=== PATIENT | female | born 1965 | race Caucasian/White ===

== ENCOUNTER 2018-05-01 21:10 | Emergency (ER) | payer OTHER ==
--- NOTE | 2018-05-01 22:19 | ERPHSYRPT ---
- History of Present Illness Time Seen by Provider: 05/01/18 22:12 Source: patient Exam Limitations: no limitations Patient Subjective Stated Complaint: pt states she has a headache that began at 1600 and has been getting worse. states it started as a sinus headache on the rt side of her head and is now on both sides, front and back and in neck. states she has headacehes like this occasionally Triage Nursing Assessment: pt alert and oriented, asnwers questions approp. pt ambulaotory with steady gait noted. respirations nonlabored with lungs cta. bilat upper and lower ext strength wnl and equal. pupils equal and reactive. Physician History: The patient is a 52-year-old female with her mother complaining of a headache since 4 PM today. Light bothers her, noise bothers her, and she is nauseated. She has headaches like this every so often. She denies numbness or tingling. She did see some visual spots earlier today. Her past medical history is significant for depression, asthma, and anxiety. Timing/Duration: today Quality: sharpness, throbbing Head Pain Location: frontal (right) Severity of Pain-Max: moderate Severity of Pain-Current: moderate Recent Head Trauma: no recent headache/trauma, occasional headaches Modifying Factors: Improves With: noise Associated Symptoms: nausea/vomiting, sensitive to light Previous symptoms: same symptoms as today Allergies/Adverse Reactions: guaifenesin [From Mucinex D] Allergy (Verified 05/01/18 21:46) pseudoephedrine [From Mucinex D] Allergy (Verified 05/01/18 21:46) Home Medications: Azelastine Nasal [Astelin Nasal] 2 sprays IH DAILY 07/06/14 [History] Budesonide/Formoterol Fumarate [Symbicort 160-4.5 Mcg Inhaler] 1 puff IH DAILY 07/06/14 [History] Calcium Citrate/Vitamin D3 [Citracal + D Caplet] 1 tab PO DAILY 07/06/14 [ History] Fluticasone Propionate [Flovent 110 Mcg MDI] 2 sprays IH DAILY 07/06/14 [ History] Montelukast Sodium 10 mg [Singulair 10 MG] 10 mg PO DAILY 07/06/14 [History] Cetirizine HCl [Zyrtec] 10 mg PO DAILY 09/04/16 [History] Clonazepam 0.5 mg [Klonopin 0.5 MG] 0.5 mg PO HS 09/04/16 [History] Escitalopram Oxalate 10 mg [Lexapro 10 MG] 10 mg PO DAILY 09/04/16 [History] Hyoscyamine Sulfate 0.125 mg [Anaspaz 0.125 mg] 0.125 mg PO Q6HPRN PRN 06/13 [History] Ondansetron [Zofran Odt] 4 mg PO QIDPRN PRN 09/04/16 [History] Tiotropium [place] Inhaler [Spiriva 18 Mcg/Cap Inhaler] 1 ea IH DAILY 06/13 [History] Tizanidine HCl 4 mg [Zanaflex 4 MG] 4 mg PO HS 09/04/16 [History] Hx Tetanus, Diphtheria Vaccination/Date Given: Yes Hx Influenza Vaccination/Date Given: No Hx Pneumococcal Vaccination/Date Given: Yes Immunizations Up to Date: Yes - Review of Systems Constitutional: No Fever, No Chills Eyes: No Symptoms Ears, Nose, & Throat: No Symptoms Respiratory: No Cough, No Dyspnea Cardiac: No Chest Pain, No Edema, No Syncope Abdominal/Gastrointestinal: Nausea, No Abdominal Pain, No Vomiting, No Diarrhea Genitourinary Symptoms: No Dysuria Musculoskeletal: No Back Pain, No Neck Pain Skin: No Rash Neurological: Headache Psychological: No Symptoms Endocrine: No Symptoms Hematologic/Lymphatic: No Symptoms Immunological/Allergic: No Symptoms All Other Systems: Reviewed and Negative - Past Medical History Pertinent Past Medical History: Yes Neurological History: No Pertinent History ENT History: No Pertinent History Cardiac History: No Pertinent History Respiratory History: Asthma Endocrine Medical History: No Pertinent History Musculoskeletal History: No Pertinent History GI Medical History: GERD History: No Pertinent History Psycho-Social History: No Pertinent History Female Reproductive Disorders: No Pertinent History - Past Surgical History Past Surgical History: Yes Neuro Surgical History: No Pertinent History Cardiac: No Pertinent History Respiratory: No Pertinent History Gastrointestinal: Cholecystectomy Genitourinary: No Pertinent History Musculoskeletal: No Pertinent History Female Surgical History: No Pertinent History Other Surgical History: hiatal hernia repair - Social History Smoking Status: Never smoker Exposure to second hand smoke: Yes Drug Use: none Patient Lives Alone: Yes - Female History Hx Last Menstrual Period: post - Nursing Vital Signs Nursing Vital Signs: Initial Vital Signs Temperature 97.5 F 05/01/18 21:33 Pulse Rate 65 05/01/18 21:33 Respiratory Rate 16 05/01/18 21:33 Blood Pressure 138/77 05/01/18 21:33 O2 Sat by Pulse Oximetry 100 05/01/18 21:33 Pain Scale Pain Intensity 8 - Physical Exam General Appearance: mild distress Eye Exam: PERRL/EOMI, photophobia Ears, Nose, Throat Exam: normal ENT inspection, moist mucous membranes Neck Exam: normal inspection, supple, full range of motion, No meningismus Respiratory Exam: normal breath sounds, lungs clear Cardiovascular Exam: regular rate/rhythm, normal heart sounds Gastrointestinal/Abdominal Exam: soft, No tenderness, No distention Back Exam: normal inspection, normal range of motion Extremity Exam: normal inspection, normal range of motion Mental Status Exam: alert, oriented x 3, cooperative 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 technologist Exam: normal hearing, normal speech, PERRL, tongue midline, No facial asymmetry, No facial droop, No facial paresthesias, No facial weakness Coordination/Gait Exam: normal cerebellar function Motor/Sensory Exam: no motor deficit, no sensory deficit Skin Exam: normal color, warm, dry, No rash SpO2 Interpretation: normal SpO2: 100 Oxygen Delivery: Room Air Ordered Tests: Medication Summary Discontinued Medications Generic Name Dose Route Start Last Admin Trade Name Bandarq PRN Reason Stop Dose Admin Ketorolac Tromethamine 60 mg 05/01/18 22:23 05/01/18 22:31 Toradol 30 Mg Injection IM 05/01/18 22:24 60 mg STAT ONE Administration Ketorolac Tromethamine Confirm 05/01/18 22:28 Toradol 30 Mg Injection Administered 05/01/18 22:29 Dose 60 mg .ROUTE .STK-MED ONE Promethazine HCl 50 mg 05/01/18 22:23 05/01/18 22:30 Phenergan 25 Mg Inj IM 05/01/18 22:24 50 mg STAT ONE Administration Promethazine HCl Confirm 05/01/18 22:28 Phenergan 25 Mg Inj Administered 05/01/18 22:29 Dose 50 mg .ROUTE .STK-MED ONE - Departure Time of Disposition: 22:23 Departure Disposition: Home Clinical Impression: Headache Condition: Stable Critical Care Time: No Referrals: WILLY CIFUENTES [Primary Care Provider] - Additional Instructions: You have a headache. You were given Toradol 60 mg and Phenergan 50 mg by IM in the ER. Rest in a quiet dark room. Follow-up with your primary medical doctor tomorrow if the condition does not improve. Also you may take Tylenol 1000 mg every 6-8 hours as needed.
[2018-05-01] MEDS ORDERED: Phenergan 25 MG INJ IM ONE (22:23)
[2018-05-01] MEDS ORDERED: TORAdol 30 mg Injection IM ONE (22:23)
[2018-05-01] MEDS ORDERED: Phenergan 25 MG INJ ONE (22:28)
[2018-05-01] MEDS ORDERED: TORAdol 30 mg Injection ONE (22:28)
[2018-05-01 23:09] VITALS: BP 116/57; PULSE 58; O2SAT 99
== END 2018-05-01 23:05 | disposition home or self-care (01) ==
LOC: ED 21:10
DX: R51 Headache (principal); Z79.899 Other long term (current) drug therapy
CPT/HCPCS: 96372; 99284; J1885; J2550

== ENCOUNTER 2022-01-10 08:10 | Emergency (ER) | payer OTHER ==
[2022-01-10] MEDS ORDERED: Sodium Chloride 0.9% 1000 ML 1,000 ML IV STA (08:46)
[2022-01-10] MEDS ORDERED: Zofran 4 MG/2 ML VIAL IV ONE (08:46)
[2022-01-10] MEDS ORDERED: Sodium Chloride 0.9% 1000 ML 1,000 ML ONE (08:52)
[2022-01-10] MEDS ORDERED: Zofran 4 MG/2 ML VIAL ONE (08:52)
--- NOTE | 2022-01-10 08:56 | ERPHSYRPT ---
- History of Present Illness Time Seen by Provider: 01/10/22 08:37 Historian: patient Exam Limitations: no limitations Patient Subjective Stated Complaint: pt here for nv/v/d since last night, pain to lower back Triage Nursing Assessment: pt alert, resp easy, face mask in place, skin w/d/p. no edema noted, abd soft Physician History: 56-year-old female presented in the ER with chief complaint of mild generalized abdominal cramping with multiple episodes of nonprojectile, nonbilious vomiting without hematemesis and multiple episodes of loose stool since last evening. Unable to hold much down. Feels weak fatigued and tired. Abdominal pain is improved now but because of repeated episodes of vomiting and diarrhea complaining of low back pain bilaterally without radiation, numbness tingling or weakness of lower extremities. Denies any fever chills. Denies any sick contact. Has chronic shortness of breath which is not any worse than usual. Timing/Duration: yesterday Activities at Onset: rest Quality: cramping Abdominal Pain Onset Location: generalized abdomen Pain Radiation: no radiation Severity of Pain-Max: mild Severity of Pain-Current: none Modifying Factors: Worsens With: vomiting Associated Symptoms: diarrhea, nausea, vomiting Previous symptoms: no prior history Allergies/Adverse Reactions: guaifenesin [From Mucinex D] Allergy (Verified 05/01/18 21:46) pseudoephedrine [From Mucinex D] Allergy (Verified 05/01/18 21:46) venlafaxine [From Effexor] Allergy (Verified 01/10/22 08:30) Home Medications: Azelastine Nasal [Astelin Nasal] 2 sprays IH DAILY 07/06/14 [History] Budesonide/Formoterol Fumarate [Symbicort 160-4.5 Mcg Inhaler] 1 puff IH DAILY 07/06/14 [History] Calcium Citrate/Vitamin D3 [Citracal + D Caplet] 1 tab PO DAILY 07/06/14 [History] Fluticasone Propionate [Flovent 110 Mcg MDI] 2 sprays IH DAILY 07/06/14 [History] Montelukast Sodium 10 mg [Singulair 10 MG] 10 mg PO DAILY 07/06/14 [History] Cetirizine HCl [Zyrtec] 10 mg PO DAILY 10/07/16 [History] Clonazepam 0.5 mg [Klonopin 0.5 MG] 0.5 mg PO HS 09/04/16 [History] Escitalopram Oxalate 10 mg [Lexapro 10 MG] 10 mg PO DAILY 09/04/16 [History] Hyoscyamine Sulfate 0.125 mg [Anaspaz 0.125 mg] 0.125 mg PO Q6HPRN PRN 09/04/16 [History] Tiotropium [place] Inhaler [Spiriva 18 Mcg/Cap Inhaler] 1 ea IH DAILY 09/04/16 [History] Hx Tetanus, Diphtheria Vaccination/Date Given: Yes Hx Influenza Vaccination/Date Given: Yes Hx Pneumococcal Vaccination/Date Given: Yes Travel Risk - International Travel Have you traveled outside of the country in past 3 weeks: No - Coronavirus Screening Are you exhibiting any of the following symptoms?: Yes Symptoms: Vomiting/Diarrhea Close contact with a COVID-19 positive Pt in past 14-21 Days: No - Vaccine Status Have you recieved a Covid-19 vaccination: Yes 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: [employer] - Vaccination Dates Date of 2cond Vaccination (if applicable): 2020 - Review of Systems Constitutional: Fatigue, Weakness Eyes: No Symptoms Ears, Nose, & Throat: No Symptoms Respiratory: Dyspnea Cardiac: No Symptoms Abdominal/Gastrointestinal: Abdominal Pain, Nausea, Vomiting, Diarrhea Genitourinary Symptoms: No Symptoms Musculoskeletal: No Symptoms Skin: No Symptoms Neurological: No Symptoms Psychological: No Symptoms Endocrine: No Symptoms Hematologic/Lymphatic: No Symptoms Immunological/Allergic: No Symptoms - Past Medical History Pertinent Past Medical History: Yes Neurological History: No Pertinent History ENT History: No Pertinent History Cardiac History: No Pertinent History Respiratory History: Asthma Endocrine Medical History: No Pertinent History Musculoskeletal History: No Pertinent History GI Medical History: GERD History: No Pertinent History Psycho-Social History: Anxiety Female Reproductive Disorders: No Pertinent History - Past Surgical History Past Surgical History: Yes Neuro Surgical History: No Pertinent History Cardiac: No Pertinent History Respiratory: No Pertinent History Gastrointestinal: Cholecystectomy Genitourinary: No Pertinent History Musculoskeletal: No Pertinent History Female Surgical History: No Pertinent History Other Surgical History: hiatal hernia repair - Social History Smoking Status: Never smoker Exposure to second hand smoke: No Drug Use: none Patient Lives Alone: Yes - Female History Hx Last Menstrual Period: post Hx Now: No - Nursing Vital Signs Nursing Vital Signs: Initial Vital Signs Temperature 97.8 F 01/10/22 08:26 Pulse Rate 121 H 01/10/22 08:26 Respiratory Rate 18 01/10/22 08:26 Blood Pressure 141/79 01/10/22 08:26 O2 Sat by Pulse Oximetry 100 01/10/22 08:26 Pain Scale Pain Intensity 6 - Physical Exam General Appearance: no apparent distress, alert Eye Exam: PERRL/EOMI, eyes nml inspection Ears, Nose, Throat Exam: normal ENT inspection, TMs normal, pharynx normal, moist mucous membranes Neck Exam: normal inspection, non-tender, supple, full range of motion Respiratory Exam: normal breath sounds, lungs clear Cardiovascular Exam: normal heart sounds, tachycardia Gastrointestinal/Abdomen Exam: soft, normal bowel sounds, No tenderness Back Exam: normal inspection, normal range of motion Extremity Exam: normal inspection, normal range of motion Neurologic Exam: alert, oriented x 3, cooperative Skin Exam: normal color SpO2 Interpretation: normal SpO2: 100 O2 Delivery: Room Air Ordered Tests: Active Orders 24 hr Category Date Time Status IV Insertion STAT Care 01/10/22 08:46 Active ABDOMEN AND PELVIS W CONTRAST [CT] Stat Exams 01/10/22 09:28 Taken CBC W DIFF Stat Lab 01/10/22 08:50 Completed CMP Stat Lab 01/10/22 08:50 Completed LIPASE Stat Lab 01/10/22 08:50 Completed Manual Differential NC Stat Lab 01/10/22 08:50 Completed UA W/RFX UR CULTURE Stat Lab 01/10/22 08:50 Completed Medication Summary Discontinued Medications Generic Name Dose Route Start Last Admin Trade Name Bandarq PRN Reason Stop Dose Admin Sodium Chloride 1,000 mls @ 999 mls/hr 01/10/22 08:46 01/10/22 08:56 Sodium Chloride 0.9% 1000 Ml IV 01/10/22 09:46 999 mls/hr .Q1H1M STA Administration Sodium Chloride Confirm 01/10/22 08:52 Sodium Chloride 0.9% 1000 Ml Administered 01/10/22 08:53 Dose 1,000 mls @ ud .ROUTE .STK-MED ONE Morphine Sulfate Confirm 01/10/22 09:29 Morphine Sulfate 4 Mg/Ml Injection Administered 01/10/22 09:30 Dose 4 mg .ROUTE .STK-MED ONE Morphine Sulfate 4 mg 01/10/22 09:16 01/10/22 10:51 Morphine Sulfate 4 Mg/Ml Injection IV 01/10/22 09:17 4 mg STAT ONE Administration Ondansetron HCl 4 mg 01/10/22 08:46 01/10/22 08:56 Ondansetron Hcl 4 Mg/2 Ml Vial IV 01/10/22 08:47 4 mg STAT ONE Administration Ondansetron HCl Confirm 01/10/22 08:52 Ondansetron Hcl 4 Mg/2 Ml Vial Administered 01/10/22 08:53 Dose 4 mg .ROUTE .STK-MED ONE Lab/Rad Data: Laboratory Result Diagrams 01/10/22 08:50 01/10/22 08:50 Laboratory Results 01/10/22 01/10/22 01/10/22 Range/Units 08:50 08:50 08:50 WBC 9.9 (4.0-10.5) K/mm3 RBC 4.64 (4.1-5.4) M/mm3 Hgb 14.0 (12.0-16.0) gm/dl Hct 43.8 (35-47) % MCV 94.4 (78-100) fl MCH 30.2 (26-32) pg MCHC 32.0 (32-36) g/dl RDW 14.6 H (11.5-14.0) % Plt Count 263 (150-450) K/mm3 MPV 12.7 H (7.5-11.0) fl Segmented Neutrophils 88 H (36.0-66.0) % Band Neutrophils 3 H (0.0-2.0) % Lymphocytes (Manual) 7 L (24-44) % Monocytes (Manual) 2 (0.0-12.0) % Hypochromia 1+ Platelet Estimate NORMAL (NORMAL) RBC Morphology NORMAL Anisocytosis 1+ Sodium 140 (137-145) mmol/L Potassium 3.8 (3.5-5.1) mmol/L Chloride 109 H (98-107) mmol/L Carbon Dioxide 20 L (22-30) mmol/L Anion Gap 15.0 (5-15) MEQ/L BUN 13 (7-17) mg/dL Creatinine 0.82 (0.52-1.04) mg/dL Estimated GFR > 60.0 ML/MIN Glucose 160 H (74-106) mg/dL Calcium 9.3 (8.4-10.2) mg/dL Total Bilirubin 0.60 (0.2-1.3) mg/dL AST 35 (14-36) U/L ALT 29 (0-35) U/L Alkaline Phosphatase 96 (38-126) U/L Serum Total Protein 6.9 (6.3-8.2) g/dL Albumin 4.3 (3.5-5.0) g/dL Lipase 69 (23-300) U/L Urine Color YELLOW (YELLOW) Urine Appearance CLEAR (CLEAR) Urine pH 7.0 (5-6) Ur Specific [place] 1.018 (1.005-1.025) Urine Protein NEGATIVE (Negative) Urine Ketones TRACE (NEGATIVE) Urine Blood NEGATIVE (0-5) Jace/ul Urine Nitrite NEGATIVE (NEGATIVE) Urine Bilirubin NEGATIVE (NEGATIVE) Urine Urobilinogen NEGATIVE (0-1) mg/dL Ur Leukocyte Esterase NEGATIVE (NEGATIVE) Urine WBC (Auto) 0-2 (0-5) /HPF Urine RBC (Auto) NONE (0-2) /HPF U Epithel Cells (Auto) NONE (FEW) /HPF Urine Bacteria (Auto) NONE (NEGATIVE) /HPF Urine Culture Reflexed NO (NO) Urine Glucose NEGATIVE (NEGATIVE) mg/dL - Progress Progress: improved Progress Note: 01/10/22 11:20 56-year-old is evaluated for vomiting diarrhea. Patient was tachycardic, given fluids and Zofran, on reevaluation feeling better. Pain is better after morphine. She has normal white count, grossly unremarkable chemistries. Obtain CT abdomen pelvis with contrast which is negative for any acute findings. CT did show some hypodense area of subcapsular in the liver which patient is advised to follow-up with primary care for further evaluation with dedicated CT/MRI progression. I believe her symptoms are secondary to viral gastroenteritis and recommended supportive care, outpatient follow-up. Discussed signs symptoms of worsening needing return to ER which she seems understanding. Counseled pt/family regarding: lab results, diagnosis, need for follow-up, rad results - Departure Departure Disposition: Home Clinical Impression: Gastroenteritis Condition: Stable Critical Care Time: No Referrals: HARISH RUBALCAVA MD [Primary Care Provider] - Follow up/PCP as directed (In 2 days for reevaluation) Instructions: Viral Gastroenteritis, Adult (DC) Additional Instructions: Drink plenty of fluids. Take Tylenol/Zofran as needed. Follow-up with primary care physician for reevaluation And also may need outpatient liver CT/MRI for further evaluation of liver lesions. Return to ER for intractable vomiting/diarrhea/abdominal pain/fever chills. Prescriptions: Ondansetron ODT 4 MG [Zofran Odt 4 mg] 1 ea PO QIDPRN PRN #7 tablet PRN Reason: n/v
[2022-01-10 09:04] LABS: Appearance CLEAR (CLEAR); Bilirubin NEGATIVE (NEGATIVE); Blood NEGATIVE Ery/ul (0-5); Glucose NEGATIVE (NEGATIVE); Ketones TRACE (NEGATIVE); Leukocyte Esterase NEGATIVE (NEGATIVE); Nitrite NEGATIVE (NEGATIVE); Protein,Urine Dip NEGATIVE (Negative); Specific Gravity 1.018 (1.005-1.025); Urobilinogen NEGATIVE mg/dL (0-1); WBC 0-2 /HPF (0-5)
[2022-01-10 09:09] LABS: ALBUMIN 4.3 g/dL (3.5-5.0); ALKALINE PHOSPHATASE 96 U/L (38-126); BLOOD UREA NITROGEN 13 mg/dL (7-17); CHLORIDE 109 mmol/L (98-107); Calcium 9.3 mg/dL (8.4-10.2); Carbon Dioxide 20 mmol/L (22-30); Creatinine 1 0.82 mg/dL (0.52-1.04); EST GLOMERULAR FILTRATION RATE > 60.0 ML/MIN; Glucose 160 mg/dL (74-106); LIPASE 69 U/L (23-300); Potassium 3.8 mmol/L (3.5-5.1); SGOT/AST 35 U/L (14-36); SGPT/ALT 29 U/L (0-35); SODIUM 140 mmol/L (137-145); Total Protein 6.9 g/dL (6.3-8.2)
[2022-01-10] MEDS ORDERED: MORPHINE SULFATE 4 MG INJ IV ONE (09:16)
[2022-01-10 09:18] LABS: Hematocrit 43.8 % (35-47); Mean Cell Volume 94.4 fl (78-100); Mean Corpuscular Hemoglobin 30.2 pg (26-32); Mean Platelet Volume 12.7 fl (7.5-11.0); Platelet Count 263 K/mm3 (150-450); Red Blood Count 4.64 M/mm3 (4.1-5.4); Red Cell Distribution Width 14.6 % (11.5-14.0); White Blood Count 9.9 K/mm3 (4.0-10.5)
[2022-01-10] MEDS ORDERED: MORPHINE SULFATE 4 MG INJ ONE (09:29)
[2022-01-10 10:52] LABS: ANISOCYTOSIS 1+; BAND 3 % (0.0-2.0); Hypochromia 1+; Lymphocytes 7 % (24-44); Monocyte 2 % (0.0-12.0); Neutrophils 88 % (36.0-66.0); Platelet Estimate NORMAL (NORMAL); Total Cells Counted 100
[2022-01-10 11:24] VITALS: BP 124/84; PULSE 109
[2022-01-10 11:25] VITALS: O2SAT 100
--- NOTE | 2022-01-10 19:10 | XRAY ---
Indication: Nausea, vomiting, and back pain. Multiple contiguous axial images obtained through the abdomen and pelvis using 80 cc Isovue 370 contrast. Comparison: July 12, 2014. Lung bases again demonstrates mild dependent atelectasis and right costophrenic angle calcified granuloma. Heart not enlarged. Incidental small right infrahilar and distal paraesophageal calcified nodes. Gastroesophageal junction demonstrates new extraluminal hyperdensity presumed postsurgical. Noncontrasted stomach and bowel loops appear nonobstructed with normal air-filled appendix. Again descending/sigmoid diverticulosis without diverticulitis. There has been interval cholecystectomy. No free fluid/air. Inferior right lobe liver demonstrates new 1.3 cm hemangioma not seen on previous noncontrast exam. Remaining liver, pancreas, spleen, adrenal glands, kidneys, ureters, bladder, uterus, and aorta are unremarkable. No pathologic retroperitoneal lymphadenopathy. Osseous structures intact. Impression: 1. Colonic diverticulosis, hepatic hemangioma, and old granulomatous disease. 2. Remaining CT abdomen/pelvis with contrast exam is negative. Comment: Preliminary interpretation made by [facility]. No critical discrepancy.
== END 2022-01-10 11:36 | disposition home or self-care (01) ==
LOC: ED 08:10
DX: A08.4 Viral intestinal infection, unspecified (principal); R11.2 Nausea with vomiting, unspecified; R19.7 Diarrhea, unspecified; R10.84 Generalized abdominal pain; R53.1 Weakness; R53.83 Other fatigue; M54.50 Low back pain, unspecified; K21.9 Gastro-esophageal reflux disease without esophagitis; R00.0 Tachycardia, unspecified; Z79.899 Other long term (current) drug therapy
CPT/HCPCS: 36000; 36415; 74177; 80053; 81001; 83690; 85025; 96374; 96375; 99284; J2270; J2405

== ENCOUNTER 2024-05-15 23:38 | Emergency (ER) | payer OTHER ==
--- NOTE | 2024-05-15 23:42 | ERPHSYRPT ---
- History of Present Illness Time Seen by Provider: 05/15/24 23:42 Source: patient, family Exam Limitations: no limitations Physician History: She is a 58-year-old white female patient who presents by private vehicle to the emergency department secondary to headache that began approximately 1330 on 05/15/2024. Patient does not have a history of migraine headaches. She does not take her blood pressure medication on a daily basis because she feels that her blood pressure fluctuates too much on a daily blood pressure medication. Patient denies head injury. Patient has mild generalized headache pain. She denies fevers or cough or other flulike symptoms. Patient states that she took ibuprofen, muscle relaxer, Benadryl and tramadol and this did not seem to resolve her pain completely. Patient has a history of asthma/COPD, depression/anxiety and gastroesophageal reflux disease. Timing/Duration: today Quality: aching Head Pain Location: global Severity of Pain-Max: mild Modifying Factors: Improves With: other (Nothing specific) Associated Symptoms: denies symptoms Previous symptoms: no prior history Allergies/Adverse Reactions: guaifenesin [From Mucinex D] Allergy (Verified 05/01/18 21:46) pseudoephedrine [From Mucinex D] Allergy (Verified 05/01/18 21:46) venlafaxine [From Effexor] Allergy (Verified 01/10/22 08:30) Home Medications: Azelastine Nasal [Astelin Nasal] 2 sprays IH DAILY 07/06/14 [History] Budesonide/Formoterol Fumarate [Symbicort 160-4.5 Mcg Inhaler] 1 puff IH DAILY 07/06/14 [History] Calcium Citrate/Vitamin D3 [Citracal + D Caplet] 1 tab PO DAILY 07/06/14 [History] Fluticasone Propionate [Flovent 110 Mcg MDI] 2 sprays IH DAILY 07/06/14 [History] Montelukast Sodium 10 mg [Singulair 10 MG] 10 mg PO DAILY 07/06/14 [History] Cetirizine HCl [Zyrtec] 10 mg PO DAILY 09/04/16 [History] Escitalopram Oxalate [Lexapro 10 MG] 10 mg PO DAILY 09/04/16 [History] Tiotropium [place] Inhaler [Spiriva 18 Mcg/Cap Inhaler] 1 ea IH DAILY 09/04/16 [History] Celecoxib [Celebrex] 200 mg PO DAILY 05/16/24 [History] Cyclobenzaprine HCl 10 mg [Cyclobenzaprine 10 MG] 10 mg PO DAILY PRN 05/16/24 [History] Esomeprazole Magnesium [Nexium] 40 mg PO DAILY 05/16/24 [History] Famotidine 20 mg [Pepcid 20 MG] 20 mg PO DAILY 05/16/24 [History] Levothyroxine Sodium 50 Mcg [Synthroid 50 Mcg] 50 mcg PO DAILY 05/16/24 [History] Liothyronine Sodium 5 mcg PO DAILY 05/16/24 [History] Pregabalin [Lyrica 75 mg Cap] 75 mg PO DAILY 05/16/24 [History] Primidone 50 MG [Mysoline 50Mg] 50 mg PO DAILY 05/16/24 [History] Promethazine HCl 25 mg PO DAILY 05/16/24 [History] Hx Tetanus, Diphtheria Vaccination/Date Given: Yes Hx Influenza Vaccination/Date Given: Yes Hx Pneumococcal Vaccination/Date Given: Yes Travel Risk - International Travel Have you traveled outside of the country in past 3 weeks: No - Emerging Infectious Disease Are you exhibiting symptoms associated with any current EIDs: No - Review of Systems Constitutional: No Symptoms Eyes: No Symptoms Ears, Nose, & Throat: No Symptoms Respiratory: No Symptoms Cardiac: No Symptoms Abdominal/Gastrointestinal: No Symptoms Genitourinary Symptoms: No Symptoms Musculoskeletal: No Symptoms Skin: No Symptoms Neurological: Headache Psychological: Anxiety Endocrine: No Symptoms Hematologic/Lymphatic: No Symptoms Immunological/Allergic: No Symptoms All Other Systems: Reviewed and Negative - Past Medical History Pertinent Past Medical History: Yes Neurological History: No Pertinent History ENT History: No Pertinent History Cardiac History: No Pertinent History Respiratory History: Asthma Endocrine Medical History: No Pertinent History Musculoskeletal History: No Pertinent History GI Medical History: GERD History: No Pertinent History Psycho-Social History: Anxiety Female Reproductive Disorders: No Pertinent History - Past Surgical History Past Surgical History: Yes Neuro Surgical History: No Pertinent History Cardiac: No Pertinent History Respiratory: No Pertinent History Gastrointestinal: Cholecystectomy Genitourinary: No Pertinent History Musculoskeletal: No Pertinent History Female Surgical History: No Pertinent History Other Surgical History: hiatal hernia repair - Social History Smoking Status: Never smoker Exposure to second hand smoke: No Drug Use: none Patient Lives Alone: Yes - Nursing Vital Signs Nursing Vital Signs: Initial Vital Signs Temperature 97.3 F 05/16/24 00:05 Pulse Rate 76 05/16/24 00:05 Respiratory Rate 16 05/16/24 00:05 Blood Pressure 156/87 05/16/24 00:05 O2 Sat by Pulse Oximetry 100 05/16/24 00:05 Pain Scale Pain Intensity 8 - Physical Exam General Appearance: no apparent distress, alert, anxiety Eye Exam: PERRL/EOMI, eyes nml inspection Ears, Nose, Throat Exam: normal ENT inspection, moist mucous membranes Neck Exam: normal inspection, non-tender, supple, full range of motion Respiratory Exam: normal breath sounds, lungs clear, airway intact, No chest tenderness, No respiratory distress Cardiovascular Exam: regular rate/rhythm, normal heart sounds, normal peripheral pulses Gastrointestinal/Abdominal Exam: No tenderness Back Exam: normal inspection, normal range of motion, No CVA tenderness, No vertebral tenderness Extremity Exam: normal inspection, normal range of motion, pelvis stable Mental Status Exam: alert, oriented x 3, 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 Exam: normal hearing, normal speech, PERRL, tongue midline Coordination/Gait Exam: normal finger to nose, normal gait, normal cerebellar function Motor/Sensory Exam: no motor deficit, no sensory deficit, no pronator drift Skin Exam: normal color, warm, dry Lymphatic Exam: No adenopathy SpO2 Interpretation: normal O2 Delivery: Room Air - Course Nursing assessment & vital signs reviewed: Yes Ordered Tests: Active Orders 24 hr Category Date Time Status HEAD WITHOUT CONTRAST [CT] Stat Exams 05/16/24 00:18 Completed UA W/RFX UR CULTURE Stat Lab 05/16/24 02:30 Completed Medication Summary Discontinued Medications Generic Name Dose Route Start Last Admin Trade Name Freq PRN Reason Stop Dose Admin Methylprednisolone Sodium 0 mg 05/16/24 02:28 Succinate 125 mg/ Sterile IM 05/16/24 02:29 Water 2 ml STAT ONE Hydromorphone HCl 0.5 mg 05/16/24 02:28 Hydromorphone 1 Mg/1ml Inj IM 05/16/24 02:29 STAT ONE Prochlorperazine Edisylate 5 mg 05/16/24 02:28 Prochlorperazine Edisylate 10 Mg/2 Ml Vial IM 05/16/24 02:29 STAT ONE Lab/Rad Data: Laboratory Results 05/16/24 05/16/24 Range/Units 02:30 00:50 Urine Color Yellow (Yellow) Urine Appearance Clear (Clear) Urine pH 5.5 (4.6-8.0) Ur Specific [place] 1.015 (1.005-1.030) Urine Protein Negative (Negative) Urine Glucose (UA) Negative (Negative) mg/dL Urine Ketones Negative (Negative) Urine Blood Negative (Negative) Urine Nitrite Negative (Negative) Urine Bilirubin Negative (Negative) Urine Urobilinogen 0.2 (0.2) mg/dL Ur Leukocyte Esterase Trace A (Negative) U Hyaline Cast (Auto) NONE SEEN (0-2) /LPF Urine Microscopic RBC 0-2 (0-5) /HPF Urine Microscopic WBC 3-5 (0-5) /HPF Ur Epithelial Cells None Seen (None Seen) /HPF Urine Bacteria None Seen (None Seen) /HPF Urine Culture Reflexed NO (NO) Influenza Type A Ag NEGATIVE (NEGATIVE) Influenza Type B Ag NEGATIVE (NEGATIVE) RSV (PCR) NEGATIVE (NEGATIVE) SARS-CoV-2 (PCR) NEGATIVE (NEGATIVE) - Progress Progress: improved, re-examined Air Movement: good Progress Note: 05/16/24 01:03 My medical decision making and the assignment of low to moderate complexity of this patient's medical issue today is based on review of the patient's past medical history, review patient medication list, review of the patient's drug allergy list, history present illness and physical findings on examination. The workup in this patient includes CT scan of the head, viral swabs and urinalysis. Differential diagnosis includes but is not limited to intracranial abnormality, migraine headache, dehydration, urinary tract infection, viral illness. 05/16/24 02:25 I interpreted the laboratory data results except for the urinalysis which is pending. Based on the current results, there are no acute emergent medical issues. CT scan of the head without contrast was interpreted by the radiologist and I reviewed the impression. The impression states no acute intracranial abnormality. 05/16/24 02:43 I interpreted the urinalysis. There is no evidence of any dehydration or urinary tract infection. Blood Culture(s) Obtained: No Antibiotics given: No Counseled pt/family regarding: lab results, diagnosis, rad results Medical Desision Making - Diagnostic Testing Diagnostic test were ordered, analyzed, and reviewed by me: Yes Radiological Interpretation: Reviewed by me, Teleradiologist Report - Risk of complications Low Risk: Low risk of morbidity from additional dx testing or treatment - Departure Departure Disposition: Home Clinical Impression: Headache Condition: Stable Critical Care Time: No Referrals: HARISH RUBALCAVA MD [Primary Care Provider] - Follow up/PCP as directed Additional Instructions: Drink plenty fluids. Take your medications as prescribed. Call your primary care provider today, 05/16/2024 to make arrangements for follow-up appointment to be seen in the next 3 to 5 days.
[2024-05-16 00:16] VITALS: RESP 16; TEMP 97.3
[2024-05-16 01:31] LABS: INFLUENZA A NEGATIVE (NEGATIVE); INFLUENZA B NEGATIVE (NEGATIVE); RESPIRATORY SYNCTIAL VIRUS NEGATIVE (NEGATIVE); SARS-CoV-2 Xpert Express NEGATIVE (NEGATIVE)
--- NOTE | 2024-05-16 02:01 | XRAY ---
CLINICAL HISTORY: Headache all day COMPARISON: None. TECHNIQUE: Axial non-contrast CT scan of the brain was performed from the skull base to the high parietal region with multiplanar reconstructions. One of the following dose reduction techniques were utilized for this exam: Automated exposure control, adjustment of the mA and/or kV according to patient size, use of iterative reconstruction. FINDINGS: The visualized brain parenchyma shows a normal appearance. Gan-white matter differentiation is maintained. No midline shifts or deformity. No intracerebral or extra axial hematoma. Normal size and configuration of the cerebral ventricles. Normal CT appearance of the posterior fossa structures namely the cerebellar hemispheres, brainstem and cerebellar peduncles. The IACs are unremarkable. The cerebello-pontine angles are clear. The osseous structures in the skull base are unremarkable. No definite calvarium fractures. The scanned paranasal sinuses are clear. Bilateral mastoid air cells appear unremarkable. IMPRESSION: No significant abnormality is detected in Plain CT head. Electronically Signed by: Bola Laguna MD. (05/16/2024 01:57:44 EDT)
[2024-05-16 02:38] LABS: Appearance Clear (Clear); Bacteria None Seen /HPF (None Seen); Bilirubin Negative (Negative); Blood Negative (Negative); Epithelial Cells None Seen /HPF (None Seen); Glucose, Urine Negative (Negative); Hyaline Casts NONE SEEN /LPF (0-2); Ketones Negative (Negative); Leukocyte Esterase Trace (Negative); Nitrite Negative (Negative); Ph 5.5 (4.6-8.0); Protein,Urine Dip Negative (Negative); RBC 0-2 /HPF (0-5); Specific Gravity 1.015 (1.005-1.030); Urobilinogen 0.2 mg/dL (0.2)
[2024-05-16 02:39] LABS: ADD URINE CULTURE? NO (NO)
[2024-05-16] MEDS ORDERED: Hydromorphone 1 mg/ml Injection ONE (03:00)
[2024-05-16] MEDS ORDERED: solu-MEDROL ONE (03:00)
[2024-05-16] MEDS ORDERED: Compazine 10 MG/2 ML ONE (03:00)
[2024-05-16] MEDS: Hydromorphone 1 mg/ml Injection IM ONE (03:05)
[2024-05-16] MEDS: Compazine 10 MG/2 ML IM ONE (03:08)
[2024-05-16] MEDS: solu-MEDROL 125 MG, Sterile H2O 10 ml 2 ML IM ONE (03:11)
[2024-05-16 03:30] VITALS: BP 134/77; PULSE 73; O2SAT 98
== END 2024-05-16 03:45 | disposition home or self-care (01) ==
LOC: ED 23:38
DX: R51.9 Headache, unspecified (principal); Z79.899 Other long term (current) drug therapy
CPT/HCPCS: 0241U; 70450; 81001; 96372; 99284; J1170; J2919